=== PATIENT | male | born 1980 | race Hispanic/Latino ===

== ENCOUNTER 2023-11-14 19:06 | Emergency (ER) | payer OTHER ==
[~2023-11-14] VITALS: Ht 175.3 cm; Wt 100.0 kg
[2023-11-14 19:11] VITALS: BP 133/94
[2023-11-14 19:15] VITALS: BP 126/88
[2023-11-14] MEDS ORDERED: NEOMYCIN-BACITRACIN-POLYMYXIN 0.5 GM/PAK PAK TOP ONE (19:15)
[2023-11-14] MEDS ORDERED: Diph, Acellular Pertussis, Tet 0.5 ML/VIAL (Tdap) SDV IM ONE (19:20)
[2023-11-14 19:53] VITALS: BP 126/88
== END 2023-11-14 20:02 | disposition home or self-care (01) | DRG 605 ==
LOC: ED 19:06
PROC: 0HQ0XZZ Repair Scalp Skin, External Approach (ICD-10-PCS; principal; 2023-11-14)
DX: S01.01XA Laceration without foreign body of scalp, initial encounter (principal); W22.09XA Striking against other stationary object, initial encounter

== ENCOUNTER 2023-11-25 10:25 | Emergency (ER) | payer OTHER ==
[~2023-11-25] VITALS: Ht 175.3 cm; Wt 103.2 kg
[2023-11-25 10:55] VITALS: BP 108/72
[2023-11-25 11:00] VITALS: BP 107/75
[2023-11-25] MEDS ORDERED: CEPHALEXIN500 M1 PO (11:08)
[2023-11-25 11:27] VITALS: BP 107/75
== END 2023-11-25 11:30 | disposition home or self-care (01) | DRG 949 ==
LOC: ED 10:25
DX: S01.01XD Laceration without foreign body of scalp, subsequent encounter (principal); L03.116 Cellulitis of left lower limb; X58.XXXD Exposure to other specified factors, subsequent encounter; S80.812A Abrasion, left lower leg, initial encounter; X58.XXXA Exposure to other specified factors, initial encounter